=== PATIENT | female | born 1945 | race Caucasian/White ===

== ENCOUNTER → 2018-08-20 | Outpatient (CLI) | payer MEDICARE ==
[~2018-08-20] MED LIST: ALEVE220 MG PO; CENTRUM SILVER1 TA1 PO; FISH OIL 10001000 MG PO; FLORICAL; IBUPROFEN 30 M800 MG PO; LISINOPRIL40 MG PO; OCUVITE PRESERV1 TAB PO; OMEPRAZOLE20 MG PO; OSCAL ULTRA 6001 TA1 PO; OXYBUTYNIN5 MG PO; SIMVASTATIN20 MG PO; VITAMIN D5000 I2 PO
[2018-08-20 10:56] LABS: ALBUMIN 3.5 gm/dl (3.1-4.5); ALKALINE PHOSPHATASE 101 U/L (45-117); BUN 29 mg/dl (7-24); CHLORIDE 110 mmol/L (98-107); CREATININE 0.76 mg/dL (0.55-1.02); POTASSIUM 4.3 mmol/L (3.5-5.1); SGOT/AST 21 IU/L (3-35); SGPT/ALT 41 U/L (12-78); SODIUM 142 mmol/L (136-145); TOTAL PROTEIN 6.7 gm/dL (6.4-8.2)
== END | disposition home or self-care (01) ==
LOC: LAB 10:18 → CT 11:00
PROVIDERS: Family Medicine
DX: R51 Headache (principal)

== ENCOUNTER 2019-11-22 05:47 | Emergency (ER) | payer MEDICARE ==
[~2019-11-22] VITALS: Ht 152.4 cm; Wt 84.8 kg
[2019-11-22 07:07] LABS: BASO % 0.5 % (0.0-1.0); EOS # 0.2 10*3/uL (0.0-0.4); EOS % 2.2 % (1.0-4.0); HEMATOCRIT 39.4 % (37.0-47.0); LYMPH % 24.1 % (27.0-41.0); MEAN CELL VOLUME 86.6 fl (81.0-99.0); MEAN CORPUSCULAR HGB 28.4 pg (27.0-31.0); MEAN CORPUSCULAR HGB CONC 32.7 g/dl (33.0-37.0); MEAN PLATELET VOLUME 10.4 fl (9.6-12.3); MONO # 0.6 10*3/uL (0.1-1.0); MONO % 6.8 % (3.0-9.0); NEUT # 5.4 10*3/uL (2.3-7.9); NEUT % 66.2 % (47.0-73.0); PLATELET COUNT AUTOMATED 229 10*3/uL (130-400); RED BLOOD COUNT 4.55 10*6/uL (4.10-5.10); RED CELL DISTRI WIDTH 14.6 % (0-14.5); WHITE BLOOD COUNT 8.2 10*3/uL (4.8-10.8)
[2019-11-22 07:22] LABS: ALBUMIN 3.2 gm/dl (3.1-4.5); ALKALINE PHOSPHATASE 89 U/L (45-117); BUN 21 mg/dl (7-24); CHLORIDE 111 mmol/L (98-107); CREATININE 1.04 mg/dL (0.55-1.02); LIPASE 51 U/L (73-393); POTASSIUM 3.7 mmol/L (3.5-5.1); SGOT/AST 9 IU/L (3-35); SGPT/ALT 16 U/L (12-78); SODIUM 140 mmol/L (136-145); TOTAL PROTEIN 6.9 gm/dL (6.4-8.2)
[2019-11-22 08:39] VITALS: BP 131/56
[2019-11-22 09:19] LABS: BACTERIA 2+; BILIRUBIN NEGATIVE (NEGATIVE); BLOOD 3+ (NEGATIVE); CLARITY SL CLOUDY (CLEAR); COLOR YELLOW (YELLOW); GLUCOSE NEGATIVE (NEGATIVE); KETONE 1+ (NEGATIVE); LEUKO ESTERASE NEGATIVE (NEGATIVE); MUCOUS 1+; NITRITE NEGATIVE (NEGATIVE); RBC TNTC rbc/hpf (0-2); UROBILINOGEN 0.2 E.U./dl (0.2-1.0)
== END 2019-11-22 09:44 | disposition home or self-care (01) ==
LOC: ED 05:47
PROVIDERS: Emergency Medicine
DX: N13.2 Hydronephrosis with renal and ureteral calculous obstruction (principal); Z88.2 Allergy status to sulfonamides; Z79.899 Other long term (current) drug therapy

== ENCOUNTER 2019-11-30 05:05 | Emergency (ER) | payer MEDICARE ==
[~2019-11-30] VITALS: Ht 152.4 cm; Wt 76.2 kg
[2019-11-30 05:14] VITALS: BP 151/60
[2019-11-30 05:47] LABS: BASO % 0.4 % (0.0-1.0); EOS # 0.1 10*3/uL (0.0-0.4); EOS % 1.1 % (1.0-4.0); HEMATOCRIT 40.1 % (37.0-47.0); LYMPH # 1.3 10*3/uL (1.3-4.4); LYMPH % 15.5 % (27.0-41.0); MEAN CELL VOLUME 85.7 fl (81.0-99.0); MEAN CORPUSCULAR HGB 27.8 pg (27.0-31.0); MEAN CORPUSCULAR HGB CONC 32.4 g/dl (33.0-37.0); MEAN PLATELET VOLUME 10.2 fl (9.6-12.3); MONO # 0.6 10*3/uL (0.1-1.0); MONO % 7.6 % (3.0-9.0); NEUT # 6.1 10*3/uL (2.3-7.9); NEUT % 75.3 % (47.0-73.0); PLATELET COUNT AUTOMATED 291 10*3/uL (130-400); RED BLOOD COUNT 4.68 10*6/uL (4.10-5.10); RED CELL DISTRI WIDTH 14.6 % (0-14.5)
[2019-11-30 06:02] LABS: CREATININE 1.11 mg/dL (0.55-1.02)
[2019-11-30] MEDS ORDERED: PERCOCET 5-3251 EACH PO (06:25)
[2019-11-30 07:01] LABS: BILIRUBIN NEGATIVE (NEGATIVE); BLOOD 3+ (NEGATIVE); CLARITY CLOUDY (CLEAR); COLOR YELLOW (YELLOW); GLUCOSE NEGATIVE (NEGATIVE); KETONE NEGATIVE (NEGATIVE); LEUKO ESTERASE NEGATIVE (NEGATIVE); NITRITE NEGATIVE (NEGATIVE); SPECIFIC GRAVITY 1.015 (1.005-1.030); UROBILINOGEN 0.2 E.U./dl (0.2-1.0)
[2019-11-30 07:04] LABS: BACTERIA 1+; RBC TNTC rbc/hpf (0-2)
== END 2019-11-30 06:41 | disposition home or self-care (01) ==
LOC: ED 05:05
PROVIDERS: Emergency Medicine
DX: N20.1 Calculus of ureter (principal); N23 Unspecified renal colic; I10 Essential (primary) hypertension; E11.9 Type 2 diabetes mellitus without complications; I48.91 Unspecified atrial fibrillation; M19.90 Unspecified osteoarthritis, unspecified site; E78.00 Pure hypercholesterolemia, unspecified; M10.9 Gout, unspecified; Z88.2 Allergy status to sulfonamides; Z79.899 Other long term (current) drug therapy

== ENCOUNTER → 2020-01-02 | Outpatient (CLI) | payer MEDICARE ==
[~2020-01-02] MED LIST changes: +PERCOCET 5-3251 EACH PO
== END | disposition home or self-care (01) ==
LOC: RAD 09:00
PROVIDERS: ATTEND Urology
DX: N81.10 Cystocele, unspecified (principal); N20.1 Calculus of ureter; M47.816 Spondylosis without myelopathy or radiculopathy, lumbar region

== ENCOUNTER → 2020-03-14 | Outpatient (CLI) | payer MEDICARE | END | disposition home or self-care (01) | LOC: RAD 08:11 | PROVIDERS: ATTEND Urology | DX: N20.1 Calculus of ureter (principal) ==

== ENCOUNTER → 2020-04-09 | Outpatient (CLI) | payer MEDICARE | END | disposition home or self-care (01) | LOC: CT 04-04 09:00 | PROVIDERS: ATTEND Urology | DX: K80.20 Calculus of gallbladder without cholecystitis without obstruction (principal); N20.0 Calculus of kidney; N20.1 Calculus of ureter ==

== ENCOUNTER → 2023-06-03 | Outpatient (CLI) | payer MEDICARE ==
[~2023-06-03] MED LIST changes: +ASPIRIN81 M1 PO; +BIOTIN5000 MC2 PO; +CALTRATE 600 P1 EAC1 PO; +CLINDAMYCIN HC300 MG PO; +COQ-10100 MG PO; +CRESTOR5 M1 PO; +Coumadin2.5 MG PO; +NORVASC10 MG PO; +ONDANSETRON4 MG SL; +PRESERVISION A1 EAC3 PO; +TOPROL XL50 M1 PO; +WARFARIN SOD5 MG PO; +ZINC30 M1 PO
[2023-06-03 14:02] LABS: BF LYMPHOCYTES 2 %; BF MACROPHAGES 5 %; BF NEUTROPHILS 93 %
[2023-06-04 18:07] LABS: ACID FAST SPEC PROCESSING Direct Inoculation (.)
== END | disposition home or self-care (01) ==
LOC: LAB 11:23
PROVIDERS: ATTEND Orthopaedic Surgery
DX: M25.462 Effusion, left knee (principal); Z96.652 Presence of left artificial knee joint

== ENCOUNTER → 2023-06-04 | Outpatient (CLI) | payer MEDICARE ==
[2023-06-04 09:32] LABS: URIC ACID 4.6 mg/dL (3.1-7.8)
== END | disposition home or self-care (01) ==
LOC: LAB 08:44
PROVIDERS: ATTEND Orthopaedic Surgery
DX: I48.91 Unspecified atrial fibrillation (principal); M25.462 Effusion, left knee; Z96.652 Presence of left artificial knee joint

== ENCOUNTER 2023-06-06 09:22 | Emergency (ER) | payer MEDICARE ==
[~2023-06-06] VITALS: Ht 154.9 cm; Wt 82.6 kg
[~2023-06-06 09:22] MED LIST changes: -ASPIRIN81 M1 PO; -BIOTIN5000 MC2 PO; -CALTRATE 600 P1 EAC1 PO; -CLINDAMYCIN HC300 MG PO; -COQ-10100 MG PO; -CRESTOR5 M1 PO; -Coumadin2.5 MG PO; -NORVASC10 MG PO; -ONDANSETRON4 MG SL; -PRESERVISION A1 EAC3 PO; -TOPROL XL50 M1 PO; -WARFARIN SOD5 MG PO; -ZINC30 M1 PO
[2023-06-06 09:42] VITALS: BP 106/53
[2023-06-06] MEDS ORDERED: NORVASC10 MG PO (10:19)
[2023-06-06] MEDS ORDERED: TOPROL XL50 M1 PO (10:20)
[2023-06-06] MEDS ORDERED: WARFARIN SOD5 MG PO (10:21)
[2023-06-06] MEDS ORDERED: Coumadin2.5 MG PO (10:24)
[2023-06-06] MEDS ORDERED: CRESTOR5 M1 PO (10:25)
[2023-06-06] MEDS ORDERED: CALTRATE 600 P1 EAC1 PO (10:26)
[2023-06-06] MEDS ORDERED: PRESERVISION A1 EAC3 PO (10:27)
[2023-06-06] MEDS ORDERED: ASPIRIN81 M1 PO (10:28)
[2023-06-06] MEDS ORDERED: BIOTIN5000 MC2 PO (10:29)
[2023-06-06] MEDS ORDERED: COQ-10100 MG PO (10:30)
[2023-06-06] MEDS ORDERED: ZINC30 M1 PO (10:30)
[2023-06-06 11:47] LABS: BASO % 0.4 % (0.0-1.0); EOS % 0.4 % (1.0-4.0); HEMATOCRIT 38.9 % (37.0-47.0); LYMPH # 1.1 10*3/uL (1.3-4.4); LYMPH % 14.9 % (27.0-41.0); MEAN CELL VOLUME 85.5 fl (81.0-99.0); MEAN CORPUSCULAR HGB 26.8 pg (27.0-31.0); MEAN CORPUSCULAR HGB CONC 31.4 g/dl (33.0-37.0); MEAN PLATELET VOLUME 9.7 fl (9.6-12.3); MONO # 0.8 10*3/uL (0.1-1.0); MONO % 10.4 % (3.0-9.0); NEUT # 5.6 10*3/uL (2.3-7.9); NEUT % 73.5 % (47.0-73.0); PLATELET COUNT AUTOMATED 377 10*3/uL (130-400); RED BLOOD COUNT 4.55 10*6/uL (4.10-5.10); RED CELL DISTRI WIDTH 13.7 % (0-14.5); WHITE BLOOD COUNT 7.7 10*3/uL (4.8-10.8)
[2023-06-06 11:56] LABS: ALKALINE PHOSPHATASE 108 U/L (46-116); BUN 11 mg/dl (9-23); CHLORIDE 105 mmol/L (98-107); POTASSIUM 3.9 mmol/L (3.4-5.1)
[2023-06-06 12:03] LABS: ACT PARTIAL THROMBO TIME 64.3 SECONDS (20.0-32.1)
[2023-06-06 12:12] LABS: SGPT/ALT < 7 U/L (5-49)
[2023-06-06] MEDS ORDERED: ONDANSETRON4 MG SL (14:11)
[2023-06-06] MEDS ORDERED: PERCOCET 5-3251 EACH PO (14:11)
[2023-06-06] MEDS ORDERED: CLINDAMYCIN HC300 MG PO (14:11)
== END 2023-06-06 15:54 | disposition home or self-care (01) ==
LOC: ED 09:22
PROVIDERS: Emergency Medicine
DX: T84.54XA Infection and inflammatory reaction due to internal left knee prosthesis, initial encounter (principal); R79.1 Abnormal coagulation profile; I48.91 Unspecified atrial fibrillation; I10 Essential (primary) hypertension; E78.5 Hyperlipidemia, unspecified; Z96.652 Presence of left artificial knee joint; Z88.2 Allergy status to sulfonamides; Z79.899 Other long term (current) drug therapy; Z79.01 Long term (current) use of anticoagulants; Z79.82 Long term (current) use of aspirin; Z98.890 Other specified postprocedural states; Y83.8 Other surgical procedures as the cause of abnormal reaction of the patient, or of later complication, without mention of misadventure at the time of the procedure; Y92.89 Other specified places as the place of occurrence of the external cause; Z87.442 Personal history of urinary calculi